=== PATIENT | female | born 1970 | race Caucasian/White ===

== ENCOUNTER 2024-07-14 07:52 | Emergency (ER) | payer OTHER, SELFPAY ==
[2024-07-14 07:53] VITALS: BP 178/108
[2024-07-14 07:56] VITALS: BP 178/98
[2024-07-14 08:25] LABS: Urine Albumin Negative (Neg - Trace); Urine Bilirubin Negative (Negative); Urine Character Clear (Clear); Urine Color Yellow; Urine Glucose Negative (Negative); Urine Ketone Negative (Negative); Urine Leukocyte 3+ (Negative); Urine Nitrite Negative (Negative); Urine Occult Blood 2+ (Negative); Urine Specific Gravity 1.005 (<1.030); Urine Urobilinogen Negative (Neg - 1+)
[2024-07-14 08:30] LABS: % Basophils 0.5 % (0-2); % Eosinophils 2.3 % (0-6); % Immature Granulocytes 0.3 % (0-0.5); % Lymphocytes 29.4 % (20.5-51.1); % Monocytes 8.2 % (1.7-9.3); % Neutrophils 59.3 % (42.2-75.2); Absolute Eosinophils 0.2 10^3/uL (0-0.7); Absolute Lymphocytes 2.2 10^3/uL (1.2-3.4); Absolute Monocytes 0.6 10^3/uL (0.1-0.6); Absolute Neutrophils 4.4 10^3/uL (1.4-6.5); Hematocrit 42.5 % (37.0-47.0); Hemoglobin 13.7 g/dL (12.0-16.0); Mean Corp Hgb Conc. 32.2 g/dL (33.0-37.0); Mean Corpuscular Volume 89.9 fL (81.0-99.0); Mean Platelet Volume 10.2 fL (7.4-10.4); Nucleated Red Blood Cells % 0 %; Platelet Count 329 10^3/uL (130-400); Red Blood Cell Count 4.73 10^6/uL (4.20-5.40); Red Cell Dist. Width 12.6 % (11.5-14.5); White Blood Cell Count 7.5 10^3/uL (4.8-10.8)
[2024-07-14 08:34] LABS: Urine Bacteria Few (Negative); Urine Red Blood Cell 0-2 /HPF (0-2)
[2024-07-14 08:41] LABS: ALT (SGPT) 14 U/L (0-35); AST (SGOT) 18 U/L (14-36); Albumin 4.2 g/dl (3.5-5.0); Alkaline Phosphatase 73 U/L (38-126); Blood Urea Nitrogen 14 mg/dl (7-17); Calcium 9.7 mg/dl (8.4-10.2); Carbon Dioxide 27 mmol/L (22-30); Chloride 104 mmol/L (98-107); Glucose 105 mg/dl (70-99); Lipase 143 U/L (23-300); Potassium 4.5 mmol/L (3.5-5.1); Sodium 138 mmol/L (135-145); Total Bilirubin 0.6 mg/dl (0.2-1.3); Total Protein 7.2 g/dl (6.3-8.2); eGFR > 60.00
--- NOTE | 2024-07-14 09:06 | ED.GENMED ---
History of Present Illness
General
Chief Complaint: Abdominal Pain
Source: patient
Exam Limitations: none
Time Seen by Provider: 07/14/24 08:42
History of Present Illness
History of Present Illness:
54yoF with a history of hypothyroidism presenting for evaluation of abdominal discomfort. Symptoms initially began about a month ago with some pelvic cramping. She also noticed some pink-tinged vaginal discharge. Patient is postmenopausal and saw
her ASSISTANT PROFESSOR OF ART for her symptoms. She had an endometrial biopsy on 06/26/2024. Endometrial tissue was not obtained but the remainder of the biopsy was normal. She was told her pelvic exam was also normal without any evidence of infection. She has
noticed increased vaginal secretions since then. Three days ago, she developed some discomfort in her right lower abdomen. Pain is intermittent and radiates to the low back. She called her ASSISTANT PROFESSOR OF ART who advised her to go to the ED for evaluation as
symptoms were not thought to be related to a gynecologic issue. Of note, patient did have a pelvic ultrasound at [place] last week but results are still pending. She denies any fevers, nausea, vomiting, dysuria. Previous abdominal surgeries
include a cholecystectomy, ovarian cystectomy, abdominoplasty, and multiple C-sections.
Phy Exam
General Physical Exam
General Presentation: well appearing and no apparent distress
General age: appears stated age
General Skin: warm and dry
General Habitus: normal
General Mental: alert
ENT Exam
ENT Exam: normocephalic
Cardiovascular Exam
Cardiovascular Exam: regular rate/rhythm
Pulmonary Exam
Pulmonary Exam: lungs clear, no respiratory distress, no rales, no crackles and no rhonchi
Gastrointestinal Exam
Gastrointestinal Exam: soft, non distended, no cva tenderness and other (+Mild tenderness in RLQ. Abdomen soft, non-distended. No rebound or guarding. No CVA tenderness. )
Neurological Exam
Neurological Exam: alert
[place] Coma Scale
Eye Opening: Spontaneous
Verbal Response: Oriented
Motor Response: Obeys Commands
GCS Total Score: 15
Skin Exam
Skin Exam: normal color and warm/dry
Psychiatric Exam
Psychiatric Exam: normal mood/affect
Course
Orders/Labs/Results
Orders:
Orders
07/14/24 08:08
Complete Blood Count/With Diff Urgent
Comprehensive Metabolic Panel Urgent
Lipase Urgent
Urinalysis Reflex To Culture Urgent
Date Specimen was Collected: 07/14/24
Time Specimen was Collected: 07:59
Urine Microscopic Reflex Cult Urgent
Urine Culture Urgent
MANDY Source: U
Specimen Description:
Date Specimen was Collected: 07/14/24
Time Specimen was Collected: 07:59
07/14/24 09:04
CT Abd/pel Without Iv Or Oral Urgent
Comment:
Reason For Exam: R flank/RLQ pain
Pelvis & Transvaginal US [US Pelvis W Transvag Combined] Urgent
Comment:
Reason For Exam: vaginal bleeding, RLQ pain
Abnormal Lab Results
07/14/24
08:08
MCHC 32.2 L g/dL
(33.0-37.0)
Glucose 105 H mg/dl
(70-99)
Ur Occult Blood Reflex 2+ A
(Negative)
Leukocyte Esterase Rfl 3+ A
(Negative)
Urine Bacteria (Reflex) Few A
(Negative)
07/14/24 08:08
07/14/24 08:08
Vital Signs
Initial and Last Documented VS:
Initial Vital Signs
Temp Pulse Resp BP Pulse Ox
97.7 F 112 18 178/108 100
07/14/24 07:53 07/14/24 07:53 07/14/24 07:53 07/14/24 07:53 07/14/24 07:53
Last Documented Vital Signs
Temp Pulse Resp BP Pulse Ox
98.2 F 76 17 162/94 97
07/14/24 07:56 07/14/24 13:45 07/14/24 13:45 07/14/24 13:28 07/14/24 13:45
MDM/Problems Addressed
Differential Diagnosis Includes:
54yoF here with intermittent RLQ pain x 3 days which radiates to the back. Has been having intermittent pelvic cramping and vaginal discharge/pink bleeding x 1 month. Currently undergoing OBGYN workup. She is hypertensive in triage with a HR of 112.
No signs of peritonitis on abdominal exam. Differential diagnosis includes but is not limited to: ovarian cyst, kidney stone, pyelonephritis, UTI, less likely appendicitis given intermittent symptoms
Initial ED plan: Abdominal labs and UA obtained in triage. Labs unremarkable including normal white count, renal function, LFTs. 2+ blood and 3+ leukocytes on urine dip although microscopic analysis is not concerning for a UTI. Will check pelvic
ultrasound and CT abdomen without contrast to evaluate for kidney stone. She declines analgesics.
*Critical Care Note
Total Time (30-74mins, 75-104mins- exclusive of procedures): Not Applicable
Update Note
Update Note:
CT abdomen shows a normal appendix. No acute abnormalities present to right kidney. There is a subtle area of decreased attenuation in the midpole of the left kidney although this does not correlate with her current symptoms. Pelvic ultrasound
shows a submucosal interim uterine myoma as well as a simple cyst in the left ovary. No indication for hospitalization at this time. She was advised to f/u with her OBGYN. Patient in agreement with plan and was discharged in stable condition.
ED Attending Note
-
Portions of this chart may have been created with voice recognition software.� Occasional wrong word or��sound alike� substitutions may have occurred due to the inherent limitations of voice recognition software.
Discharge Plan
Departure
Patient Disposition: Home (Routine Discharge)
Date of Disposition: 07/14/24
Time of Disposition: 13:56
Patient with high blood pressure during this ER visit?: Yes
Discharge Problem:
Acute right lower quadrant pain
Instructions: Abdominal Pain
Referrals:
Kasey Epperson PA [Family Provider] -
Activity Restrictions/Additional Instructions:
Apply heat to affected area. Take Tylenol and ibuprofen as needed for pain.
Please follow-up with your OBGYN. Return to the ER with any new or worsening symptoms.
Interventions
Interventions:
*Risk Screen - Suicide Last Done: 07/14/24 07:56
*General Assessment Last Done: 07/14/24 09:09
*Neglect/Abuse Screening Last Done: 07/14/24 07:56
*ED- Fall Risk Assessment Last Done: 07/14/24 09:25
*ED COVID-19 Vaccine History Last Done: 07/14/24 09:09
*Nursing Disposition Last Done: 07/14/24 14:53
HP-Zvkuop-Xivutzcinz Assessment Last Done: 07/14/24 09:09
Discharge Date and Time
Discharge Date/Time: 07/14/24 14:54
Print Language: GUINEAN
[2024-07-14 09:08] VITALS: BP 164/100
[2024-07-14 09:09] VITALS: BMI 29.9
[2024-07-14 10:00] VITALS: BP 157/91
[2024-07-14 13:28] VITALS: BP 162/94
== END 2024-07-14 14:54 | disposition home or self-care (01) ==
LOC: EMR 07:52
PROVIDERS: Emergency Medicine; EMERGENCY PHYSICIAN Emergency Medicine; FAMILY PHYSICIAN Physician Assistant
DX: R10.31 Right lower quadrant pain (principal); D25.0 Submucous leiomyoma of uterus; N89.8 Other specified noninflammatory disorders of vagina; N83.292 Other ovarian cyst, left side; E03.9 Hypothyroidism, unspecified; Z90.49 Acquired absence of other specified parts of digestive tract
CPT/HCPCS: 99284; 74176; 76830; 76856; 80053; 81003; 81015; 83690; 85025; 87086